=== PATIENT | female | born 1965 | race Caucasian/White ===

== ENCOUNTER → 2021-07-04 08:39 | Outpatient (CLI) | payer OTHER, SELFPAY ==
[2021-07-04 09:42] LABS: Hemoglobin A1C% w Est Avg Glu 6.5 % (4.0-6.0)
[2021-07-04 09:56] LABS: Add Manual Diff / Slide Review NO; Basophils Absolute Auto 0 /uL (0-100); Basophils Percent Auto 0.6 % (0-2); Eosinophils Absolute Auto 200 /uL (0-450); Eosinophils Percent Auto 3.4 % (2-4); HEMOLYSIS < 15 (0-50); Hematocrit 43.2 % (36-46); Hemoglobin 14.8 g/dL (12.0-16.0); Lymphocytes Absolute Auto 1600 /uL (1100-4500); Lymphocytes Percent Auto 29.2 % (25-40); Mean Corpuscular HGB Conc 34.3 % (30-36); Mean Corpuscular Hemoglobin 31.4 PG (26-34); Mean Corpuscular Volume 91.6 fL (80-100); Monocytes Absolute Auto 500 /uL (0-900); Monocytes Percent Auto 8.7 % (3-14); Neutrophils Absolute Auto 3100 /uL (1500-7000); Neutrophils Percent Auto 58.1 % (50-75); Platelet Count 286 X10^3/uL (150-400); Red Blood Cell Count 4.72 X10^6/uL (4.0-5.2); Red Cell Distribution Width 13.1 % (11.6-14.8); White Blood Cell Count 5.3 X10^3/uL (4.5-11.0)
[2021-07-04 09:59] LABS: Iron 85 ug/dL (37-170)
[2021-07-04 10:05] LABS: Alanine Aminotransferase 55 IU/L (<35); Albumin 4.6 g/dL (3.5-5.0); Albumin Globulin Ratio 1.4 (1.0-2.8); Alkaline Phosphatase 61 U/L (38-126); Aspartate Aminotransferase 33 IU/L (14-36); BUN Creatinine Ratio 23.8 (6-22); Bilirubin Total 0.5 mg/dL (0.2-1.3); Blood Urea Nitrogen 19 mg/dL (7-17); Calcium 9.8 mg/dL (8.4-10.2); Carbon Dioxide 34 mmol/L (22-32); Chloride 101 mmol/L (98-107); Estimated Glomerular Filt Rate > 60.0 mL/min (>60); Globulin 3.4 g/dL (1.7-4.1); Glucose 143 mg/dL (70-100); HEMOLYSIS < 15 (0-50); Potassium 4.4 mmol/L (3.4-5.1); Sodium 139 mmol/L (137-145)
[2021-07-04 10:12] LABS: Percent Iron Saturation 26 % (15-50); Total Iron Binding Capacity 332 ug/dL (265-497); Transferrin 277 mg/dL (206-381)
[2021-07-04 10:35] LABS: Ferritin 59 ng/mL (11-264)
[2021-07-08 13:21] LABS: Cholesterol 262 mg/dL (140-199); HDL Cholesterol 46 mg/dL (40-60); LDL Cholesterol Calculated 170 mg/dL (<100); Triglycerides 231 mg/dL (35-150)
== END ==
PROVIDERS: PCP Physician Assistant; Referring Provider Physician Assistant; Visit Provider Physician Assistant
DX: D50.9 Iron deficiency anemia, unspecified (principal); E11.9 Type 2 diabetes mellitus without complications
CPT/HCPCS: 36415; 80053; 80061; 82728; 83036; 83540; 83550; 85025

== ENCOUNTER → 2022-11-27 07:58 | Outpatient (CLI) | payer OTHER, SELFPAY ==
[2022-11-27 09:15] LABS: Add Manual Diff / Slide Review NO; Basophils Absolute Auto 0 /uL (0-100); Basophils Percent Auto 0.5 % (0-2); Eosinophils Absolute Auto 200 /uL (0-450); Eosinophils Percent Auto 4.2 % (2-4); Hemoglobin 14.7 g/dL (12.0-16.0); Lymphocytes Absolute Auto 1500 /uL (1100-4500); Lymphocytes Percent Auto 29.1 % (25-40); Mean Corpuscular HGB Conc 35.1 % (30-36); Mean Corpuscular Hemoglobin 31.5 PG (26-34); Mean Corpuscular Volume 89.7 fL (80-100); Monocytes Absolute Auto 400 /uL (0-900); Monocytes Percent Auto 8.2 % (3-14); Neutrophils Absolute Auto 3100 /uL (1500-7000); Platelet Count 291 X10^3/uL (150-400); Red Blood Cell Count 4.68 X10^6/uL (4.0-5.2); Red Cell Distribution Width 13.6 % (11.6-14.8); White Blood Cell Count 5.3 X10^3/uL (4.5-11.0)
[2022-11-27 09:27] LABS: HEMOLYSIS < 15 (0-50); Iron 121 ug/dL (37-170)
[2022-11-27 09:33] LABS: Alanine Aminotransferase 39 IU/L (<35); Albumin 4.2 g/dL (3.5-5.0); Albumin Globulin Ratio 1.2 (1.0-2.8); Alkaline Phosphatase 58 U/L (38-126); Aspartate Aminotransferase 27 IU/L (14-36); BUN Creatinine Ratio 21.1 (6-22); Bilirubin Total 0.7 mg/dL (0.2-1.3); Blood Urea Nitrogen 15 mg/dL (7-17); Calcium 9.2 mg/dL (8.4-10.2); Carbon Dioxide 27 mmol/L (22-32); Chloride 100 mmol/L (98-107); Cholesterol 232 mg/dL (140-199); Estimated Glomerular Filt Rate > 60 mL/min (>60); Globulin 3.4 g/dL (1.7-4.1); Glucose 170 mg/dL (70-100); HDL Cholesterol 47 mg/dL (40-60); HEMOLYSIS < 15 (0-50); LDL Cholesterol Calculated 133 mg/dL (<100); Potassium 3.7 mmol/L (3.4-5.1); Sodium 136 mmol/L (137-145); Total Protein 7.6 g/dL (6.3-8.2); Triglycerides 260 mg/dL (35-150); VLDL Cholesterol Calculated 52 mg/dL (2-30)
[2022-11-27 09:41] LABS: Percent Iron Saturation 36 % (15-50); Total Iron Binding Capacity 332 ug/dL (265-497); Transferrin 244 mg/dL (206-381)
[2022-11-27 09:46] LABS: Microalbumin Urine Random < 0.6 mg/dL (0-1.6)
[2022-11-27 09:47] LABS: Creatinine Urine Random 111.2 mg/dL
[2022-11-27 10:03] LABS: TSH w/ Reflex to FT4 1.85 uIU/mL (0.47-4.68)
[2022-11-27 10:19] LABS: Hep C Virus Ab w/Reflex Quant NEGATIVE s/c (NEGATIVE)
== END ==
PROVIDERS: PCP Nurse Practitioner Family; Referring Provider Nurse Practitioner Family; Visit Provider Nurse Practitioner Family
DX: I10 Essential (primary) hypertension (principal); E11.9 Type 2 diabetes mellitus without complications; K76.0 Fatty (change of) liver, not elsewhere classified; E78.5 Hyperlipidemia, unspecified; D50.9 Iron deficiency anemia, unspecified; Z11.59 Encounter for screening for other viral diseases
CPT/HCPCS: 36415; 80053; 80061; 82043; 82570; 83036; 83540; 83550; 84443; 85025; 86803

== ENCOUNTER → 2023-02-17 16:36 | Outpatient (CLI) | payer OTHER, SELFPAY ==
--- NOTE | 2023-02-17 16:36 | DI.MG.S_ITS ---
BILATERAL DIGITAL SCREENING MAMMOGRAM 3D/2D WITH CAD: 02/17/2023 CLINICAL: Baseline exam. Routine screening. No prior exams were available for comparison. There are scattered areas of fibroglandular density in both breasts (category b / 25%-50% glandular tissue). Current study was also evaluated with a Computer Aided Detection (CAD) system. There is a mass in the left breast upper outer quadrant posterior depth. No other significant masses, calcifications, or other findings are seen in either breast. IMPRESSION: INCOMPLETE: NEEDS ADDITIONAL IMAGING EVALUATION Left breast upper outer quadrant mass. Needs additional imaging evaluation. Recommend Left breast diagnostic mammogram and ultrasound. Based on the Tyrer Cuzick model (a risk assessment model) the patient's lifetime risk is 8.9% and her 10 year risk is 2.9%. According to the ACR, ACS, and NCCN guidelines, an annual breast MRI exam along with mammogram is recommended if the patient's lifetime risk is 20% or greater. This exam was interpreted at Station ID: [id number]. NOTE: For mammograms, a report in lay terms will be sent to the patient. Approximately 15% of breast malignancies will not be visualized mammographically. In the management of a palpable breast mass, a negative mammogram must not discourage biopsy of a clinically suspicious lesion. Electronically Signed By: Maribel vincent/:02/18/2023 10:33:23 letter sent: Additional Imaging Needed ACR BI-RADS Category 0: Incomplete 3340F
== END ==
PROVIDERS: PCP Nurse Practitioner Family; Referring Provider Nurse Practitioner Family; Visit Provider Nurse Practitioner Family
DX: Z12.31 Encounter for screening mammogram for malignant neoplasm of breast (principal)
CPT/HCPCS: 77063; 77067

== ENCOUNTER → 2023-03-05 10:01 | Outpatient (CLI) | payer SELFPAY | PROVIDERS: PCP Nurse Practitioner Family; Referring Provider Nurse Practitioner Family; Visit Provider Nurse Practitioner Family | DX: E66.9 Obesity, unspecified (principal) ==

== ENCOUNTER → 2023-05-14 12:12 | Outpatient (CLI) | payer OTHER, SELFPAY ==
--- NOTE | 2023-05-14 | DI.US.S_ITS ---
LIMITED ULTRASOUND OF LEFT BREAST: 05/14/2023 CLINICAL: Patient returns today to evaluate a focal asymmetry in the left breast. Comparison is made to exams dated: 05/14/2023 mammogram and 02/17/2023 mammogram - [facility]. Color flow and real-time ultrasound of the left breast 2 o'clock region were performed. There is a benign 0.8 cm intramammary lymph node in the left breast at 2 o'clock, 11 cm from the nipple. This corresponds to mammographic mass. IMPRESSION: BENIGN Left breast benign intramammary lymph node at 2 o'clock. No mammographic or targeted sonographic evidence of malignancy. A 1 year screening mammogram is recommended. Findings and recommendations were conveyed to the patient during today's evaluation. This exam was interpreted at Station ID: [id number]. Electronically Signed By: Maribel Stein M.D., PH.D eb/:05/14/2023 13:26:35 letter sent: Normal Exam Ultrasound BI-RADS: 2 Benign
--- NOTE | 2023-05-14 | DI.MG.S_ITS ---
UNILATERAL LEFT DIGITAL DIAGNOSTIC MAMMOGRAM 3D/2D WITH ADDITIONAL VIEWS: 05/14/2023 CLINICAL: Additional evaluation requested from prior study. Comparison is made to exam dated: 02/17/2023 mammogram - [facility]. There are scattered areas of fibroglandular density in the left breast (category b / 25%-50% glandular tissue). There is a 0.5 cm oval mass with a circumscribed margin in the left breast upper outer quadrant at posterior depth. This corresponds to mass seen on recent screening mammogram. No other significant masses or calcifications are seen in the breast. IMPRESSION: INCOMPLETE: NEEDS ADDITIONAL IMAGING EVALUATION Left breast posterior upper outer quadrant 0.5 cm oval circumscribed mass. An ultrasound is recommended for further evaluation and is scheduled to immediately follow this examination. Based on the Tyrer Cuzick model (a risk assessment model) the patient's lifetime risk is 7.1% and her 10 year risk is 2.3%. According to the ACR, ACS, and NCCN guidelines, an annual breast MRI exam along with mammogram is recommended if the patient's lifetime risk is 20% or greater. This exam was interpreted at Station ID: [id number]. NOTE: For mammograms, a report in lay terms will be sent to the patient. Approximately 15% of breast malignancies will not be visualized mammographically. In the management of a palpable breast mass, a negative mammogram must not discourage biopsy of a clinically suspicious lesion. Electronically Signed By: Maribel Stein M.D., PH.D eb/:05/14/2023 13:05:12 ACR BI-RADS Category 0: Incomplete 3340F
== END ==
PROVIDERS: PCP Nurse Practitioner Family; Referring Provider Nurse Practitioner Family; Visit Provider Nurse Practitioner Family
DX: N63.21 Unspecified lump in the left breast, upper outer quadrant (principal); R92.8 Other abnormal and inconclusive findings on diagnostic imaging of breast
CPT/HCPCS: 76642; 77065; G0279

== ENCOUNTER → 2023-07-17 08:56 | Outpatient (CLI) | payer OTHER, SELFPAY ==
[2023-07-17 10:05] LABS: Alanine Aminotransferase 34 IU/L (<35); Albumin 4.7 g/dL (3.5-5.0); Albumin Globulin Ratio 1.2 (1.0-2.8); Alkaline Phosphatase 58 U/L (38-126); Aspartate Aminotransferase 23 IU/L (14-36); BUN Creatinine Ratio 26.6 (6-22); Bilirubin Total 0.8 mg/dL (0.2-1.3); Blood Urea Nitrogen 21 mg/dL (7-17); Calcium 10.1 mg/dL (8.4-10.2); Carbon Dioxide 32 mmol/L (22-32); Chloride 99 mmol/L (98-107); Estimated Glomerular Filt Rate > 60 mL/min (>60); Globulin 3.8 g/dL (1.7-4.1); Glucose 168 mg/dL (70-100); HEMOLYSIS < 15 (0-50); Sodium 139 mmol/L (137-145); Total Protein 8.5 g/dL (6.3-8.2)
[2023-07-19 20:59] LABS: Cholesterol HDL Ratio 4.1 ratio (0.0-4.4); Cholesterol,Total 239 mg/dL (100-199); HDL Cholesterol 58 mg/dL (>39); LDL Cholesterol Cal 144 mg/dL (0-99); Triglycerides 204 mg/dL (0-149); VLDL Cholesterol Cal 37 mg/dL (5-40)
== END ==
LOC: LAB 08:58
PROVIDERS: PCP Nurse Practitioner Family; Referring Provider Nurse Practitioner Family; Visit Provider Nurse Practitioner Family
DX: E78.5 Hyperlipidemia, unspecified (principal); E11.65 Type 2 diabetes mellitus with hyperglycemia
CPT/HCPCS: 36415; 80053; 80061; 83036

== ENCOUNTER → 2025-03-20 07:59 | Outpatient (CLI) | payer OTHER, SELFPAY ==
[2025-03-20 08:26] LABS: Hematocrit 43.7 % (36-46); Hemoglobin 15.0 g/dL (12.0-16.0); Mean Corpuscular HGB Conc 34.4 % (30-36); Mean Corpuscular Hemoglobin 30.8 PG (26-34); Mean Corpuscular Volume 89.7 fL (80-100); Platelet Count 287 X10^3/uL (150-400)
[2025-03-20 08:47] LABS: Alanine Aminotransferase 23 IU/L (<35); Albumin 4.6 g/dL (3.5-5.0); Albumin Globulin Ratio 1.6 (1.0-2.8); Alkaline Phosphatase 57 U/L (38-126); Blood Urea Nitrogen 19 mg/dL (7-17); Calcium 9.7 mg/dL (8.4-10.2); Carbon Dioxide 30 mmol/L (22-32); Chloride 100 mmol/L (98-107); Cholesterol 256 mg/dL (140-199); Estimated Glomerular Filt Rate > 60 mL/min (>60); Globulin 2.9 g/dL (1.7-4.1); Glucose 153 mg/dL (70-99); HDL Cholesterol 67 mg/dL (40-60); HEMOLYSIS < 15 (0-50); Potassium 4.2 mmol/L (3.4-5.1); Sodium 138 mmol/L (137-145); Total Protein 7.5 g/dL (6.3-8.2); Triglycerides 153 mg/dL (35-150)
[2025-03-20 08:50] LABS: Hemoglobin A1C% w Est Avg Glu 6.5 % (4.0-6.0)
== END ==
PROVIDERS: PCP Family Medicine; Referring Provider Family Medicine; Visit Provider Family Medicine
DX: E11.9 Type 2 diabetes mellitus without complications (principal); E78.5 Hyperlipidemia, unspecified; I10 Essential (primary) hypertension
CPT/HCPCS: 36415; 80053; 80061; 83036; 85027